=== PATIENT | male | born 1970 | race Two or more races ===

== ENCOUNTER 2020-01-29 02:39 | Emergency (ER) | payer OTHER ==
[~2020-01-29] VITALS: Ht 170.2 cm; Wt 98.9 kg
[2020-01-29] MEDS ORDERED: ASPIR 8181 MG (03:03)
== END 2020-01-29 06:26 | disposition home or self-care (01) ==
LOC: ER 02:39 → CPU-OBS 02:52 → ER 06:26
DX: R07.89 Other chest pain (principal)
CPT/HCPCS: G0378; G0379; 93005